=== PATIENT | male | born 1945 | race American Indian/Alaskan Native ===

== ENCOUNTER 2016-11-24 10:29 | Emergency (ER) | payer BC, MEDICARE ==
[2016-11-24 10:34] VITALS: BP 118/61; PULSE 62; RESP 18; TEMP 98.5; O2SAT 98
--- NOTE | 2016-11-24 11:14 | ED PDOC ---
Upper Extremity Pain/Injury Time Seen by Provider: 11/24/16 10:53 Chief Complaint (Nursing): Finger,Hand,&Wrist History Per: Patient Additional Complaint(s): Pt. states on Tuesday he accidentally closed a car door on his R thumb and has had pain and swelling to the finger since. Denies numbness, tingling, fever. Past Medical History Reviewed: Historical Data, Nursing Documentation, Vital Signs Vital Signs: Last Vital Signs Temp 98.5 F 11/24/16 10:34 Pulse 62 11/24/16 10:34 Resp 18 11/24/16 10:34 BP 118/61 11/24/16 10:34 Pulse Ox 98 11/24/16 10:34 - Medical History PMH: Hypercholesterolemia Other PMH: pre-DM - Family History Family History: States: No Known Family Hx - Allergies Allergies/Adverse Reactions: Allergies Allergy/AdvReac Type Severity Reaction Status Date / Time No Known Allergies Allergy Verified 11/24/16 10:58 Review of Systems ROS Statement: Except As Marked, All Systems Reviewed And Found Negative Physical Exam - Physical Exam Appears: Positive for: Well, Non-toxic, No Acute Distress Skin: Positive for: Normal Color, Warm. Negative for: Rash Extremity: Positive for: Other (R thumb with swelling to distal phalanx along with >50% subungual hematoma and nail is intact) - ECG O2 Sat by Pulse Oximetry: 98 - Radiology X-Ray: Interpreted by Me (R thumb x-ray) X-Ray Interpretation: No Acute Disease - Progress ED Course And Treament: R thumb x-ray ordered. Procedures - Time-Out Type of Procedure: Subungual hematoma evacuation Site of Procedure: R thumb Correct Patient: Yes Correct Procedure: Yes Correct Site Marked: Yes PA/Tech: Arlyn PA - Nail Trepanation Nail Trepanation Location: R thumb Method of Drainage: nail cauterized Finger Splint: Yes Progress: Small amount of blood evacuated. Pt. tolerated procedure well without pain. Disposition - Clinical Impression Clinical Impression: Subungual hematoma of fingernail - Patient ED Disposition Is Patient to be Admitted: No - Disposition Disposition: Routine/Home Disposition Time: 12:22 Condition: STABLE Additional Instructions: Follow up with your primary care physician in 2 days for wound check. Instructions: Subungual Hematoma (ED) Print Language: SPANISH
--- NOTE | 2016-11-24 11:48 | RAD ---
PROCEDURE: Right Thumb radiographs. HISTORY: trauma COMPARISON: None. TECHNIQUE: AP radiograph of the right hand, as well as spot oblique and lateral images of thumb were obtained. FINDINGS: RIGHT THUMB: A 1 x 2.5 mm well corticated ossification projects just dorsal to the 1st proximal phalanx -just proximal to the 1st interphalangeal joint here. A discrete donor site is not identified. Just distal to this there is proximal yifan lung gall soft tissue swelling which may relate to patient's current injury. 1 mm ossification projects over the volar aspect of the 1st interphalangeal joint its etiology significance is unclear tiny sesamoids -tiny old osseous avulsions tiny loose bodies are all differential considerations. Regarding it no focal donor site is evident either. Directed clinical exam to any point tenderness is needed. No gross cortical 1st phalangeal disruption or fractures or a complete fractures or ded displaced fractures are noted. There is exostosis off the ulnar side of the 1st distal phalanx. JOINTS: Normal. SOFT TISSUES: Normal. OTHER FINDINGS: None. IMPRESSION: No cortical fracture. Other nonspecific extraosseous ossifications present -considerations described above
== END 2016-11-24 12:39 | disposition home or self-care (01) ==
LOC: H.ER 10:29
DX: S60.111A Contusion of right thumb with damage to nail, initial encounter (principal); W23.0XXA Caught, crushed, jammed, or pinched between moving objects, initial encounter; Y93.9 Activity, unspecified